=== PATIENT | female | born 1975 | race American Indian/Alaskan Native ===

== ENCOUNTER 2016-12-06 13:27 | Outpatient (CLI) | payer BC ==
--- NOTE | 2016-12-06 14:02 | Mammography Report ---
Bilateral mammogram: No previous studies available. CAD study utilized. Findings: Predominance of adipose tissue bilaterally. No mass or microcalcification. Focal circumscribed asymmetry in the mid left breast. Normal axilla. Impression: Circumscribed asymmetry in the mid left breast. Comparison with previous studies is recommended. If previous studies are not available spot mag and sonographic examination advised. BI-RADS CATEGORY: 0 = Needs additional imaging evaluation ACR BI-RADS MAMMOGRAPHIC CODES: 0 = Needs additional imaging evaluation; 1 = Negative; 2 = Benign; 3 = Probably benign; 4 = Suspicious; 5 = Malignant; 6 = Known biopsy-proven malignancy COMMENT: 1. Dense breast tissue, i.e., adenosis, fibrocystic changes, etc., may obscure an underlying neoplasm. 2. Approximately 10% of cancers are not detected with mammography. 3. A negative mammography report should not delay biopsy if a clinically suspicious mass is present. COMMENT: Patient follow-up letters are generated in [facility].
== END 2016-12-06 13:28 | disposition home or self-care (01) ==
LOC: MAMMO 13:27
PROVIDERS: ATTEND Family Medicine
DX: Z12.31 Encounter for screening mammogram for malignant neoplasm of breast (principal); I10 Essential (primary) hypertension
CPT/HCPCS: 77067; G0202

== ENCOUNTER 2016-12-17 14:30 | Outpatient (CLI) | payer BC ==
--- NOTE | 2016-12-17 15:22 | Mammography Report ---
LEFT DIGITAL DIAGNOSTIC MAMMOGRAM : 12/17/16 14:30:00 CLINICAL: Recalled for asymmetry. COMPARISON:12/06/16 screening FINDINGS: Lateralmedial and spot compression CC views were performed. Satisfactory effacement of asymmetry on the CC view. The lateral view is negative. IMPRESSION: Negative Mammogram. BI-RADS CATEGORY: 1 -- Negative RECOMMENDATION: Routine mammographic screening in one year. ACR BI-RADS MAMMOGRAPHIC CODES: 0 = Needs additional imaging evaluation; 1 = Negative; 2 = Benign; 3 = Probably benign; 4 = Suspicious; 5 = Malignant; 6 = Known biopsy-proven malignancy COMMENT: 1. Dense breast tissue, i.e., adenosis, fibrocystic changes, etc., may obscure an underlying neoplasm. 2. Approximately 10% of cancers are not detected with mammography. 3. A negative mammography report should not delay biopsy if a clinically suspicious mass is present. COMMENT: Patient follow-up letters are generated via our [employer] application.
== END 2016-12-17 14:31 | disposition home or self-care (01) ==
LOC: MAMMO 14:30
PROVIDERS: ATTEND Nurse Practitioner Gerontology
DX: R92.2 Inconclusive mammogram (principal); I10 Essential (primary) hypertension
CPT/HCPCS: 77066; G0204

== ENCOUNTER 2017-12-26 11:38 | Outpatient (CLI) | payer OTHER ==
--- NOTE | 2017-12-27 11:20 | Mammography Report ---
BILATERAL DIGITAL SCREENING MAMMOGRAM with CAD: 12/26/17 11:38:00 CLINICAL: Routine screening. COMPARISON:12/06/16 FINDINGS: The breasts are predominantly fatty with bilateral residual heterogeneously dense retroareolar fibroglandular densities. No mass, architectural distortion or suspicious calcifications. IMPRESSION: No mammographic evidence of malignancy. BI-RADS CATEGORY: 1 - - Negative RECOMMENDATION: Routine mammographic screening in one year. COMMENT: Patient follow-up letters are generated by our [employer] application.
== END 2017-12-26 11:39 | disposition home or self-care (01) ==
LOC: SPVWC 11:38
PROVIDERS: ATTEND Hospitalist
DX: Z12.31 Encounter for screening mammogram for malignant neoplasm of breast (principal)
CPT/HCPCS: 77067